=== PATIENT | male | born 1990 | race African-American/Black ===

== ENCOUNTER 2017-08-30 13:30 | Emergency (ER) | payer SELFPAY ==
[~2017-08-30] VITALS: Ht 195.6 cm; Wt 100.0 kg
[~2017-08-30 13:30] MED LIST: LORTA5 PO; SILV1CRE59 TOP; Z.0.NO CURRENT MEDS
[2017-08-30 13:32] VITALS: BP 156/67; PULSE 88; RESP 15; TEMP 99; O2SAT 99
[2017-08-30] MEDS ORDERED: BACT800T5 PO (14:25)
--- NOTE | 2017-08-30 14:26 | PD ---
HPI Chief Complaint: Skin Problem Time Seen by Provider: 14:14 Travel History International Travel<30 days: No Contact w/Intl Traveler<30days: No Traveled to known affect area: No History of Present Illness HPI 26-year-old male presents emergency Department with complaint of an abscess to his right inner thigh that has been there for 2 weeks and has arty drained. The areas hardened and he wanted to know what was wrong with it. His mom also told him to come in for antibiotics. Denies fever, vomiting. Symptoms are mild in severity. No known relieving or aggravating factors. Allergies to fish containing products. No primary care provider. Denies significant past medical history. Has no other medical complaints. No other modifying factors or associated signs and symptoms. [facility] Past Medical History Diminished Hearing: No Integumentary: Yes (HERPES) Social History Alcohol Use: No Tobacco Use: No Substance Use: No Allergies-Medications (Allergen,Severity, Reaction): Coded Allergies: Fish Containing Products (Unverified Allergy, Severe, EDEMA AROUND MOUTH, 08/30/17) Reported Meds & Prescriptions Reported Meds & Active Scripts Active Bactrim DS (Sulfamethoxazole-Trimethoprim) 800-160 Mg Tab 1 Tab PO BID 7 Days Review of Systems Except as stated in HPI: all other systems reviewed are Neg Physical Exam Narrative GENERAL: Well-nourished, well-developed black male patient, in no acute distress ; afebrile, nontoxic-appearing SKIN: There is an indurated area to the right inner thigh which measures about 2 cm in diameter; the area has R he drained and is healed and there are no signs of infection; the areas without erythema, edema, drainage.. HEAD: Atraumatic. Normocephalic. EYES: Pupils equal and round. No scleral icterus. No injection or drainage. ENT: Mucosa pink and moist. Airway patent. NECK: Trachea midline. CARDIOVASCULAR: Regular rate. RESPIRATORY: No accessory muscle use. GASTROINTESTINAL: Flat. MUSCULOSKELETAL: No obvious deformities. No clubbing. No cyanosis. No edema. NEUROLOGICAL: Awake and alert. Oriented 3. No obvious cranial nerve deficits. Motor grossly within normal limits. Normal speech. PSYCHIATRIC: Appropriate mood and affect; insight and judgment normal. Data Data Last Documented VS Vital Signs Date Time Temp Pulse Resp B/P (MAP) Pulse Ox O2 Delivery O2 Flow Rate FiO2 08/30/17 13:32 99.0 88 15 156/67 (96) 99 Orders Orders Ed Discharge Order (08/30/17 14:26) MDM Medical Decision Making Medical Screen Exam Complete: Yes Emergency Medical Condition: Yes Medical Record Reviewed: Yes Differential Diagnosis Abscess, folliculitis, medical clearance Narrative Course 26-year-old male with an abscess to his right inner thigh that has already drained and is healed. There are no signs of infection. I discussed antibiotics are not necessary, and the patient is requesting them because his mom told him to come for antibiotics. Bactrim prescribed for home. Instructed patient to follow up with primary care provider. Patient verbalizes understanding and agreement with treatment plan. Patient is medically cleared and stable for discharge. Discussed reasons to return to the emergency department. Patient agrees with treatment plan. The patients vital signs are stable and the patient is stable for outpatient follow-up and treatment. Patient discharged home, stable and in no acute distress. Diagnosis Primary Impression: Abscess of right thigh Referrals: [facility] Primary Care Physician Patient Instructions: Abscess (ED), General Instructions Additional Instructions: Complete full course of antibiotics Warm compresses to the affected area Keep area clean and dry Ibuprofen or Tylenol as directed and as needed for pain and inflammation Follow-up with primary care provider Return to emergency department immediately with worsening of symptoms Med/Other Pt SpecificInfo: Prescription(s) given Scripts Sulfamethoxazole-Trimethoprim (Bactrim DS) 800-160 Mg Tab 1 TAB PO BID for Infection for 7 Days, #14 TAB 0 Refills Prov: Melinda Vazquez 08/30/17 Disposition: 01 DISCHARGE HOME Condition: Stable Melinda Vazquez Aug 30, 2017 14:25
== END 2017-08-30 15:00 | disposition home or self-care (01) ==
LOC: NEPK 13:30
DX: L02.415 Cutaneous abscess of right lower limb (principal)
CPT/HCPCS: 99283

== ENCOUNTER 2017-10-08 19:42 | Emergency (ER) | payer SELFPAY ==
[~2017-10-08] VITALS: Ht 195.6 cm; Wt 102.0 kg
[2017-10-08 19:40] VITALS: O2SAT 100
[~2017-10-08 19:42] MED LIST changes: +BACT800T5 PO; -LORTA5 PO; -SILV1CRE59 TOP; -Z.0.NO CURRENT MEDS
[2017-10-08] MEDS ORDERED: ceFAZolin 2 GM PREMIX 50 ML ONE (19:45)
[2017-10-08] MEDS ORDERED: ONDANSETRON HCL 4 MG/2 ML VIAL ONE (19:49)
[2017-10-08] MEDS ORDERED: MORPHINE SULFATE 4 MG/ML INJ ONE (19:49)
[2017-10-08] MEDS ORDERED: DIPHTH/TETANUS/ACEL PERTUSSIS (BOOSTER) 0.5 ML VIAL/PFS IM ONE (19:50)
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
[2017-10-08] MEDS ORDERED: IOHEXOL 350 MG/ML 10 ML VIAL (for RAD DIAG) IVCONTRAST ONE (20:10)
[2017-10-08 20:20] LABS: INTERNATIONAL NORMALIZED RATIO 1.1 RATIO; PROTHROMBIN TIME - PATIENT 10.7 SEC (9.8-11.6)
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
[2017-10-08 20:52] VITALS: BP 149/66; PULSE 114; RESP 18; O2SAT 100
[2017-10-08 20:54] VITALS: BP 147/66; PULSE 112; RESP 18; O2SAT 100
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
[2017-10-08 21:51] LABS: AUTOMATED NEUTROPHIL # 3.3 TH/MM3 (1.8-7.7); BASOPHIL # 0.1 TH/MM3 (0-0.2); BASOPHIL % 0.5 % (0.0-2.0); EOSINOPHIL # 0.2 TH/MM3 (0-0.4); EOSINOPHIL % 2.2 % (0.0-4.0); HEMATOCRIT 39.5 % (39.0-51.0); HEMOGLOBIN 13.9 GM/DL (13.0-17.0); LYMPHOCYTE # 6.3 TH/MM3 (1.0-4.8); MEAN CELL VOLUME 80.5 FL (80.0-100.0); MEAN CORPUSCULAR HEMOGLOBIN 28.3 PG (27.0-34.0); MEAN CORPUSCULAR HGB CONC 35.2 % (32.0-36.0); MEAN PLATELET VOLUME 8.3 FL (7.0-11.0); MONO % 5.4 % (0.0-8.0); MONOCYTE # 0.6 TH/MM3 (0-0.9); NEUT % 31.9 % (16.0-70.0); PLATELET COUNT 242 TH/MM3 (150-450); RED BLOOD COUNT 4.91 MIL/MM3 (4.50-5.90); RED CELL DISTRIBUTION WIDTH 14.5 % (11.6-17.2); WHITE BLOOD COUNT 10.4 TH/MM3 (4.0-11.0)
[2017-10-08] MEDS ORDERED: HYDR-2374 PO (22:12)
[2017-10-08] MEDS ORDERED: CEPH-460 PO (22:12)
[2017-10-08] MEDS ORDERED: ACETAMINOPHEN/HYDROcodone 325 MG/5 MG TAB PO ONE (22:15)
[2017-10-08 22:54] VITALS: BP 134/65
[2017-10-08 22:56] LABS: LYMPHOCYTES 59 % (9-44); MONOCYTES 4 % (0-8); NEUTROPHIL # MANUAL DIFF 3.5 TH/MM3 (1.8-7.7); POLYS (SEG NEUTROPHILS) 34 % (16-70)
== END 2017-10-08 23:14 | disposition home or self-care (01) ==
LOC: MERGE 19:42 → EDBD 19:42 → NEPE 19:42
DX: S71.102A Unspecified open wound, left thigh, initial encounter (principal); W34.00XA Accidental discharge from unspecified firearms or gun, initial encounter
CPT/HCPCS: 71045; 72170; 73551; 75635; 80048; 80307; 85007; 85027; 85384; 85610; 85730; 86850; 86900; 86901; 90471; 90715; 96374; 96375; 99285; J0690; J2270; J2405; Q9967